=== PATIENT | female | born 1965 | race Caucasian/White ===

== ENCOUNTER 2021-02-22 11:17 | Emergency (ER) | payer OTHER ==
[~2021-02-22] VITALS: Ht 170.2 cm; Wt 117.9 kg
[2021-02-22] MEDS ORDERED: ZESTRIL10 MG PO (14:35)
--- NOTE | 2021-02-23 12:37 | EKG ---
[facility] [address] [facility] [place], [place] [address] Signed Normal sinus rhythm Possible Left atrial enlargement T wave abnormality, consider inferior ischemia Abnormal ECG No previous ECGs available Confirmed by ALFA LOWERY DO ([id number]) on 02/23/2021 12:37:30 PM Electronically Signed By: ALFA LOWERY DO 02/23/21 1237 PATIENT NAME: ALEJANDRO MORALES Electrocardiogram DATE OF : 69 PHYSICIAN: ALFA LOWERY DO REPORT #: [id number] REPORT IS CONFIDENTIAL AND NOT TO BE RELEASED WITHOUT AUTHORIZATION
== END 2021-02-22 14:52 | disposition home or self-care (01) ==
LOC: ED 11:17
DX: R07.89 Other chest pain (principal); R03.0 Elevated blood-pressure reading, without diagnosis of hypertension
CPT/HCPCS: 71045; 80053; 83735; 84484; 85025; 93005; 93010; 99285-25; 99406

== ENCOUNTER 2024-10-14 16:38 | Emergency (ER) | payer OTHER ==
[~2024-10-14] VITALS: Ht 170.2 cm; Wt 124.7 kg
[~2024-10-14 16:38] MED LIST: ZESTRIL10 MG PO
[2024-10-14] MEDS ORDERED: LABETALOL HCL 20 MG/4 ML VIAL IV ONE (18:45)
[2024-10-14] MEDS ORDERED: ACETAMINOPHEN 500 MG TAB PO ONE (18:45)
[2024-10-14] MEDS ORDERED: lisinopriL 20 MG TAB PO ONE (18:45)
[2024-10-14 18:48] LABS: BASOPHILS 0.3 % (0-2); EOSINOPHILS 1.2 % (0-6); HEMATOCRIT 42.9 % (35.0-50.0); HEMOGLOBIN 14.4 g/dL (12.0-18.0); LYMPHOCYTES 35.1 % (24-44); MCH 32.7 (27-36); MCHC 33.6 g/dl (30-36); MCV 97.3 fl (81-99); NEUTROPHILS 53.4 % (39-80); PLATELET COUNT 228 K/uL (140-440); RBC 4.41 M/ul (4.3-5.7); RDW 13.1 (10.5-15.0)
[2024-10-14 19:08] LABS: ALBUMIN 3.8 g/dL (3.4-5.0); ALBUMIN/GLOBULIN RATIO 0.97 (1.1-2.4); ANION GAP 12.6 (7-21); BILIRUBIN, TOTAL 0.2 ng/dL (0.2-1.0); BUN/CREATININE RATIO 11.88 (6.0-28.6); CALCIUM 9.4 mg/dL (8.5-10.1); CREATININE, SERUM 1.01 mg/dL (0.55-1.02); POTASSIUM 3.6 mmol/L (3.5-5.1); PROTEIN, TOTAL 7.7 g/dL (6.4-8.2)
[2024-10-14] MEDS ORDERED: LISINOPRIL20 MG PO (19:49)
[2024-10-14 19:57] VITALS: BP 159/90
== END 2024-10-14 19:57 | disposition home or self-care (01) ==
LOC: ED 16:38
PROVIDERS: Emergency Medicine
DX: I10 Essential (primary) hypertension (principal); F17.200 Nicotine dependence, unspecified, uncomplicated
CPT/HCPCS: 36415; 80053; 84484; 85025; 96374; 99284-25; 99406; A9270

== ENCOUNTER 2025-06-16 05:35 | Day surgery (SDC) | payer OTHER ==
[~2025-06-16] VITALS: Ht 167.6 cm; Wt 114.0 kg
--- NOTE | ~2025-06-16 | OR ---
[facility] [address] [place], [place] [address] Draft DATE OF OPERATION: 06/16/2025 SURGEON: Fabian Arce DPM PREOPERATIVE DIAGNOSIS: Ganglion cyst, left foot, two sites. POSTOPERATIVE DIAGNOSIS: Ganglion cyst, left foot, two sites. ACTIMIZE ARCHITECT SURGEON: Dunia Quinonez DPM. ANESTHESIA: IV general with local block, left foot. CLOTH CHECKER: Chaim Gatica. SPECIMEN: To pathology ganglion cyst with two separate specimens for specimen from the medial first metatarsal base area. Second lesion from the dorsal second metatarsal base area. PROCEDURE: Excision of ganglion cyst, left foot, two sites. DESCRIPTION OF PROCEDURE: The patient was brought to the operating room and placed on the table in the supine position. Anesthesia Department administered IV sedation after which a local block was given to the left foot using a total of 10 mL 1:1 mixture, 2% lidocaine plain and 0.5% ropivacaine plain. The left foot was then prepped and draped in the usual sterile manner and an Esmarch was used for hemostasis. Attention was initially directed to the medial left first metatarsal base where a raised lesion was noted. A longitudinal incision made over this site 3-4 cm in length, initially full-thickness through the dermis then deepened through subcutaneous tissue using careful dissection and cautery as necessary for hemostasis. The lesion was quickly evident within the surgical site with a fluctuant fluid-filled encapsulated lesion consistent with a ganglion noted. The lesion was dissected free from the surrounding tissue. This appeared to have the connection at the first PATIENT NAME: ALEJANDRO MORALES OPERATIVE REPORT DATE OF : 69 REPORT #: [id number] PHYSICIAN: FABIAN ARCE DPM PCP: MARBIN NASCIMENTO MD REPORT IS CONFIDENTIAL AND NOT TO BE RELEASED WITHOUT AUTHORIZATION [facility] [address] [place] [id number] [place] metatarsal-cuneiform joint. With the lesion dissection, the cyst was punctured in the process, but was able to be removed intact otherwise. The surgical site was then irrigated. Procedure #2: Ganglion cyst excision, dorsal left second metatarsal base area. An incision was made to the dorsal mid foot over the second metatarsal base area at the site of the raised lesion, the incision was 3-4 cm in length initially full-thickness through the dermis then deepened through subcutaneous tissue using careful dissection and cautery as necessary for hemostasis. The lesion was rapidly evident within the surgical site and had a clear fluid appearance consistent with a ganglion cyst. The lesion was dissected free and removed intact. The surgical site was then irrigated with normal saline. Subcutaneous closure performed to both surgical sites using 4-0 Vicryl. Skin closed using skin twan. Then dressings applied. Dressings applied consisting of Adaptic, Betadine-soaked gauze, dry gauze, Flexicon, and Coban for mild compression. INTRAOPERATIVE COMPLICATIONS: None. ESTIMATED BLOOD LOSS: Less than 5 mL. The patient tolerated the procedure and the anesthesia well and left the operating room with vital signs stable and vascular status intact to the left foot as evidenced by hyperemia with removal of the Esmarch. Fabian Arce DPM DFB/MODL /[id number] Copies: PATIENT NAME: ALEJANDRO MORALES OPERATIVE REPORT DATE OF : 69 REPORT #: [id number] PHYSICIAN: FABIAN ARCE DPM PCP: MARBIN NASCIMENTO MD REPORT IS CONFIDENTIAL AND NOT TO BE RELEASED WITHOUT AUTHORIZATION [address] [address] Draft ~ PATIENT NAME: ALEJANDRO MORALES OPERATIVE REPORT DATE OF : 69 REPORT #: [id number] PHYSICIAN: FABIAN ARCE DPM PCP: MARBIN NASCIMENTO MD REPORT IS CONFIDENTIAL AND NOT TO BE RELEASED WITHOUT AUTHORIZATION
[~2025-06-16 05:35] MED LIST changes: +LACTATED RINGER'S 1,000 ML IV SCH; +LIPITOR40 MG PO; +LISINOPRIL20 MG PO; +LOSARTAN-HCTZ1 EAC1 PO
[2025-06-16 06:12] VITALS: BP 145/85
[2025-06-16] MEDS ORDERED: Ropivacaine HCl 0.5% 30 ML VIAL ONE (06:13)
[2025-06-16] MEDS ORDERED: LIDOCAINE HCL 2% 20 ML MDV ONE (06:14)
[2025-06-16] MEDS ORDERED: DEXAMETHASONE SOD PHOS 4 MG/ML VIAL ONE (06:14)
[2025-06-16] MEDS ORDERED: LIDOCAINE HCL 2% 5 ML SDV ONE (06:57)
[2025-06-16] MEDS ORDERED: fentaNYL citrate 100 MCG/2 ML VIAL ONE (06:57)
[2025-06-16] MEDS ORDERED: IBLOOD GLUCOSE TEST STRIP 1 EA TEST VI PRN ×2 (07:00→08:30)
[2025-06-16] MEDS ORDERED: LIDOCAINE HCL 1% 5 ML SDV INJ ONE (07:00)
[2025-06-16] MEDS ORDERED: KETOROLAC TROMETHAMINE 30 MG/ML VIAL ONE (07:00)
[2025-06-16] MEDS ORDERED: CEFAZOLIN SODIUM 2 GM in SODIUM CHLORIDE 0.9% 100 ML IV SCH (07:00)
[2025-06-16] MEDS ORDERED: fentaNYL citrate 50 MCG/ML SDV IV PRN (08:30)
[2025-06-16] MEDS ORDERED: HYDROmorphone HCL 1 MG/ML SYR IV PRN (08:30)
[2025-06-16] MEDS ORDERED: NALOXONE HCL 0.4 MG SYR IV PRN (08:30)
[2025-06-16] MEDS ORDERED: PROCHLORPERAZINE EDISYLATE 10 MG/2 ML VIAL IV PRN (08:30)
--- NOTE | 2025-06-16 08:39 | NUR ---
06/16/25 0839 Tiffanie Padilla 4415-PATIENT ARRIVED TO PACU ON 6L MASK RR EVEN. PATIENT AWAKE DROWSY RAISING LEFT HAND TO FACE EDUCATED ABOUT OXYGEN MASK. SINUS BRADYCARDIA HR UPPER 50'S. DRESSING TO LEFT FOOT INTACT. PATIENT ABLE TO WIGGLE TOES. DENIES PAIN OR NAUSEA.
[2025-06-16 09:10] VITALS: BP 136/95
--- NOTE | 2025-06-20 16:01 | EKG ---
[facility] [address] [facility] [place] [address] Signed Normal sinus rhythm ST \T\ T wave abnormality, consider inferior ischemia Abnormal ECG When compared with ECG of 10-JUN-2025 14:19, premature ventricular complexes are no longer present Confirmed by Kimberlyn Angeles MD () on 06/20/2025 4:01:03 PM Electronically Signed By: KIMBERLYN ANGELES MD 06/20/25 1601 PATIENT NAME: ALEJANDRO MORALES Electrocardiogram DATE OF : 69 PHYSICIAN: KIMBERLYN ANGELES MD REPORT #: [id number] REPORT IS CONFIDENTIAL AND NOT TO BE RELEASED WITHOUT AUTHORIZATION
== END 2025-06-16 09:15 | disposition home or self-care (01) ==
LOC: DS 05:35 → OPS 05:35 → DS 07:00 → OPS 07:00 → DS 08:30 → OPS 09:15
PROVIDERS: ATTEND Podiatrist Foot Surgery
PROC: 0L9W0ZZ Drainage of Left Foot Tendon, Open Approach (ICD-10-PCS; principal; 2025-06-16 07:00)
DX: M67.472 Ganglion, left ankle and foot (principal); I10 Essential (primary) hypertension; Z79.899 Other long term (current) drug therapy
CPT/HCPCS: 01470; J0688; J1100; J1885; J2003; J2405; J2704; J2795; J3010; J7121